=== PATIENT | female | born 1975 | race Caucasian/White ===

== ENCOUNTER 2021-04-18 08:03 | Emergency (ER) | payer OTHER ==
[~2021-04-18] VITALS: Wt 68.9 kg
[~2021-04-18 08:03] MED LIST: CYCLOBENZAPRINE5 M3 PO; Motrin,Rufen800 MG PO; SEPTRA DS 800 M1 TAB PO
[2021-04-18 11:56] VITALS: BP 128/70
== END 2021-04-18 10:55 | disposition home or self-care (01) ==
LOC: ED 08:03
DX: U07.1 COVID-19 (principal)